=== PATIENT | female | born 1945 | race Caucasian/White ===

== ENCOUNTER 2017-05-21 20:04 | Inpatient (IN) ==
--- NOTE | 2017-05-21 20:19 | Emergency Department Note ---
Disposition Clinical Impression: MANDO (acute kidney injury), Dehydration, Nausea vomiting and diarrhea Leukocytosis Qualifiers: Leukocytosis type: unspecified Qualified Code(s): D72.829 - Elevated white blood cell count, unspecified Disposition: Admitted As Inpatient Condition: Good Time of Disposition: 23:13 Nausea/Vomiting/Diarrhea HPI - General Chief complaint: ED Abdominal Pain Stated complaint: N/V/D x 3days Time Seen by Provider: 05/21/17 20:16 Source: patient Mode of arrival: ambulatory Limitations: no limitations Nursing Notes Reviewed: Yes Vital Signs Reviewed: Yes - History of Present Illness HPI Narrative: Patient is a 71 yo female with PMHx of HTN. She presents today due to N/V/D for 3 days. She states that she also had RUQ pain yesterday that radiated to right LQ and right back. She states that this was pain, it lasted for a few hours. She was concerned that it could be gallbladder related. She went to her PCP and had a right upper quadrant ultrasound ordered outpatient for today to assess her gallbladder. However, she states that she was too sick to go this morning as she was still having dry heaving and diarrhea. Denies any chest pain , shortness of breath, any dysuria, hematuria, blood in the stool. She does still have her gallbladder. She has subjective chills but has not taken her temperature. She is also prescribed Zofran 8 mg to take as needed by her md care physician. She has taken to these tablets at home and states that it is not helping with her nausea. She feels as though she is not able to keep any liquids down. She states that she feels dehydrated. - Related Data Allergies Allergy/AdvReac Type Severity Reaction Status Date / Time No Known Allergies Allergy Verified 05/21/17 22:17 All systems ED: reviewed and negative except as stated. Constitutional: Reports: chills (Subjective) Cardiovascular: Denies: chest pain, palpitations Respiratory: Denies: cough, dyspnea Gastrointestinal: Reports: abdominal pain, nausea, vomiting, diarrhea. Denies: constipation, hematemesis, melena, hematochezia Genitourinary: Denies: urgency, dysuria, frequency Musculoskeletal: Reports: back pain Neurological: Denies: weakness, numbness, paresthesias Endocrine: Denies: fatigue Past Medical History - Past Medical History Attestation: Yes The following information was validated with the patient. Source: patient Medical history: Reports: hypertension Psychiatric history: Reports: anxiety, depression - Social History Smoking Status: Former smoker Smokeless Tobacco Status: No Alcohol use: Reports: none Physical Exam - General Limitations: no limitations General appearance: alert - Head Head exam: atraumatic, normocephalic, normal inspection - Eye Eye exam: Present: normal appearance, PERRL, EOMI - ENT ENT exam: normal oropharynx, mucous membranes dry - Neck Neck exam: Present: normal inspection, full ROM, trachea midline - Chest Chest inspection: Present: normal inspection, symmetric chest wall rise - Respiratory Respiratory exam: Present: normal lung sounds bilaterally - Cardiovascular Cardiovascular exam: Present: normal rhythm, tachycardia, normal heart sounds - Abdominal Exam Abdominal exam: Present: soft, Non-Tender. Absent: tenderness, distention, guarding, rebound, rigidity - Extremities Exam Extremities exam: Present: normal inspection, full ROM. Absent: tenderness, pedal edema - Neurological Exam Neurological exam: Present: alert, oriented X3, CN II-XII intact. Absent: motor sensory deficit - Psychiatric Psychiatric exam: Present: normal affect, normal mood - Skin Skin exam: Present: warm, dry, intact, normal color Course Course Narrative: Patient was tachycardic. Otherwise, the rest of the vitals within normal limits. Patient appears generally unwell, has dry mucous membranes. Otherwise , cardiac exam shows sinus tachycardia, lungs clear to auscultation bilaterally , no overt tenderness on abdomen exam, abdomen is soft, no rigidity or rebound. Bedside ultrasound was performed and gallbladder wall thickness was within normal limits, no air cholecystic fluid, no large stones visible. There may have been a minimal amount of sludge. Patient was ordered Phenergan for nausea since Zofran was not working. Also ordered 1 L normal saline fluids. We will draw a CBC, BMP, LFTs, urine. We will also obtain CT of the abdomen and pelvis. Due to elevated creatinine, low GFR, we will have to do noncontrast CT scan. 21:43 Elevated WBC of 23.4. Cr is 1.9, elevated above baseline. Lipase and LFTs WNL. Lactic 2.5. Trop negative. UA negative. Currently waiting on CT abd and pelvis. 23:10 CT abdomen and pelvis shows colitis of the ascending colon. We will give the patient Cipro and Flagyl. Is also hydronephrosis on the right, this has been a previous issue in the past. Patient states that she was just recently seen at [facility] urology for procedure on the right ureter. She cannot remember what the procedure was. She is aware of this condition and appears to be chronic, has been there is early as [address] Will admit the patient for colitis, a cat, leukocytosis, intractable nausea and vomiting.. Chest X-Ray 05/21/17 20:37 IMPRESSION: Minimal left basilar atelectasis or scar. Sequela of granulomatous disease. D/ / Aryan Thomas MD / Aryan Thomas MD Interpreting Provider: Aryan Thomas MD Abdomen/Pelvis CT 05/21/17 21:06 IMPRESSION: Severe right-sided hydronephrosis, of uncertain etiology. This could be related to an acquired UPJ obstruction due to stricture. Possible concurrent colitis of the ascending colon. Hepatic steatosis. D/ / Thomas Meyer MD / Thomas Meyer MD Interpreting Provider: Thomas Meyer MD Vital Signs Temperature 98 F 05/21/17 20:06 Pulse Rate 114 05/21/17 20:06 Respiratory Rate 20 05/21/17 20:06 Blood Pressure 145/82 05/21/17 20:06 O2 Sat by Pulse Oximetry 94 05/21/17 20:06 Temperature 98 F 05/21/17 20:06 Pulse Rate 90 05/21/17 22:55 Respiratory Rate 16 05/21/17 22:55 Blood Pressure 148/81 05/21/17 22:55 O2 Sat by Pulse Oximetry 95 05/21/17 22:55 Oxygen Delivery Oxygen Delivery Nasal Cannula Nausea/Vomiting/Diarrhea - MDM Narrative Medical decision making narrative: 21:43 Elevated WBC of 23.4. Cr is 1.9, elevated above baseline. Lipase and LFTs WNL. Lactic 2.5. Trop negative. UA negative. Currently waiting on CT abd and pelvis. 23:10 CT abdomen and pelvis shows colitis of the ascending colon. We will give the patient Cipro and Flagyl. Is also hydronephrosis on the right, this has been a previous issue in the past. Patient states that she was just recently seen at [facility] urology for procedure on the right ureter. She cannot remember what the procedure was. She is aware of this condition and appears to be chronic, has been there is early as [address] Will admit the patient for colitis, a cat, leukocytosis, intractable nausea and vomiting.. - Medical Records Medical records reviewed: Yes I reviewed the patient's medical records. - Lab Data Lab results reviewed: Yes I reviewed the patient's lab results. Result diagrams: 05/21/17 19:37 05/21/17 19:37 Lab Results 05/21/17 05/21/17 05/21/17 Range/Units 19:37 19:37 19:37 WBC 23.4 H (4.3-11.1) K/mcL RBC 5.35 H (3.82-4.97) M/mcL Hgb 14.8 (11.5-15.4) g/dL Hct 43.9 (35.3-44.9) % MCV 82.1 L (83.0-100.0) fL MCH 27.7 L (28.0-33.3) pg MCHC 33.7 (31.6-35.5) g/dL RDW 12.8 (11.5-14.5) % Plt Count 187 (140-400) K/mcL MPV 9.5 (9.4-12.4) fL Seg Neutrophils % 82.0 % Band Neutrophils % 12.0 H (0-4) % Lymphocytes % 6.0 % Neutrophils # 22.0 H (1.6-8.9) K/mcL Lymphocytes # 1.4 (0.6-4.6) K/mcL Reactive Lymphocytes Present A (Not Present) Platelet Estimate Normal (Normal) Sodium 134 L (136-145) mEq/L Potassium 3.4 L (3.5-4.5) mEq/L Chloride 95 L (98-109) mEq/L Carbon Dioxide 23 (19-29) mEq/L BUN 28 H (7-20) mg/dL Creatinine 1.94 H (0.57-1.11) mg/dL Est GFR ( Amer) 31 L (> 60) Est GFR (Non-Af Amer) 26 L (> 60) BUN/Creatinine Ratio 14 (6-26) Glucose 166 H (70-99) mg/dL Calculated Osmolality 287 (280-300) Lactic Acid 2.5 H (0.5-2.2) mmol/L Calcium 9.6 (8.6-10.8) mg/dL Total Bilirubin 0.9 (0.2-1.2) mg/dL Direct Bilirubin 0.4 (0.0-0.5) mg/dL Indirect Bilirubin 0.5 (0.0-1.2) mg/dL AST 18 (5-34) Units/L ALT 15 (0-55) Units/L Alkaline Phosphatase 52 (38-126) Units/L Troponin I (0-0.03) ng/mL Serum Total Protein 8.2 (6.0-8.3) g/dL Albumin 3.8 (3.5-5.0) g/dL Globulin 4.4 H (2.4-3.5) g/dL Albumin/Globulin Ratio 0.9 L (1.1-2.2) Amylase 80 (25-125) Units/L Lipase 47 (8-78) Units/L Urine Color (Yellow) Urine Clarity (Clear) Urine pH (5.0-8.0) pH Units Ur Specific [place] (1.010-1.025) Urine Protein (Neg-Trace) mg/dL Urine Glucose (UA) (Normal) mg/dL Urine Ketones (Negative) mg/dL Urine Blood (Negative) Urine Nitrite (Negative) Urine Bilirubin (Negative) Urine Urobilinogen (Normal) mg/dL Ur Leukocyte Esterase (Negative) Urine Microscopic RBC (0-3) per hpf Urine Microscopic WBC (0-3) per hpf Ur Squamous Epith Cells (None-Few) per lpf Urine Bacteria (None-Few) per hpf Hyaline Casts (None-Few) per lpf Ur Culture Indicated? (NO) 05/21/17 05/21/17 Range/Units 19:37 20:49 WBC (4.3-11.1) K/mcL RBC (3.82-4.97) M/mcL Hgb (11.5-15.4) g/dL Hct (35.3-44.9) % MCV (83.0-100.0) fL MCH (28.0-33.3) pg MCHC (31.6-35.5) g/dL RDW (11.5-14.5) % Plt Count (140-400) K/mcL MPV (9.4-12.4) fL Seg Neutrophils % % Band Neutrophils % (0-4) % Lymphocytes % % Neutrophils # (1.6-8.9) K/mcL Lymphocytes # (0.6-4.6) K/mcL Reactive Lymphocytes (Not Present) Platelet Estimate (Normal) Sodium (136-145) mEq/L Potassium (3.5-4.5) mEq/L Chloride (98-109) mEq/L Carbon Dioxide (19-29) mEq/L BUN (7-20) mg/dL Creatinine (0.57-1.11) mg/dL Est GFR ( Amer) (> 60) Est GFR (Non-Af Amer) (> 60) BUN/Creatinine Ratio (6-26) Glucose (70-99) mg/dL Calculated Osmolality (280-300) Lactic Acid (0.5-2.2) mmol/L Calcium (8.6-10.8) mg/dL Total Bilirubin (0.2-1.2) mg/dL Direct Bilirubin (0.0-0.5) mg/dL Indirect Bilirubin (0.0-1.2) mg/dL AST (5-34) Units/L ALT (0-55) Units/L Alkaline Phosphatase (38-126) Units/L Troponin I 0.03 (0-0.03) ng/mL Serum Total Protein (6.0-8.3) g/dL Albumin (3.5-5.0) g/dL Globulin (2.4-3.5) g/dL Albumin/Globulin Ratio (1.1-2.2) Amylase (25-125) Units/L Lipase (8-78) Units/L Urine Color Yellow (Yellow) Urine Clarity Clear (Clear) Urine pH 6.0 (5.0-8.0) pH Units Ur Specific [place] 1.027 H (1.010-1.025) Urine Protein 100 H (Neg-Trace) mg/dL Urine Glucose (UA) Normal (Normal) mg/dL Urine Ketones Negative (Negative) mg/dL Urine Blood Trace H (Negative) Urine Nitrite Negative (Negative) Urine Bilirubin Small H (Negative) Urine Urobilinogen Normal (Normal) mg/dL Ur Leukocyte Esterase Trace H (Negative) Urine Microscopic RBC 5-15 H (0-3) per hpf Urine Microscopic WBC 5-15 H (0-3) per hpf Ur Squamous Epith Cells Many H (None-Few) per lpf Urine Bacteria None Seen (None-Few) per hpf Hyaline Casts Few (None-Few) per lpf Ur Culture Indicated? NO (NO) - Radiology Data Radiology results reviewed: Yes I reviewed the patient's radiology results. Chest X-Ray 05/21/17 20:37 IMPRESSION: Minimal left basilar atelectasis or scar. Sequela of granulomatous disease. D/ / Aryan Thomas MD / Aryan Thomas MD Interpreting Provider: Aryan Thomas MD Abdomen/Pelvis CT 05/21/17 21:06 IMPRESSION: Severe right-sided hydronephrosis, of uncertain etiology. This could be related to an acquired UPJ obstruction due to stricture. Possible concurrent colitis of the ascending colon. Hepatic steatosis. D/ / Thomas Meyer MD / Thomas Meyer MD Interpreting Provider: Thomas Meyer MD S.B.AAndreRAndre - S.BAndreAMargarita Situation: Demographics, MOA Background: Presenting Complaint, Relevant PMH, Meds, & Allergies Assessment: Vital Signs, Course and respsone to treatment, Exam Concerns, Patient/Family Expectation, Pertinant Lab Results, Outstanding Labs Recommendation: Barrier(s) to disposition, Recommendation based on pending studies, treatments, or consults S.B.A.RAndre Report Given to: Dr. Grant SAndreBPeyton Repor Time: 23:13 Attestation Statement - Attestation Attestation: I examined this patient and my medical decision-making was reviewed with the Resident Physician. I agree with the documented findings, disposition and treatment plan as described except to the extent set forth below. Patient to the ED with vomiting and diarrhea for 3-4 days. Saw the PCP who ordered an outpatient ultrasound that she was not well enough to go. On examination she has pain in the right side of her abdomen. Plan. Patient received fluids and meds. Did a bedside ultrasound which did not show any obvious stones or pericholecystic fluid. We elected to CT the patient. She has a right-sided colitis. She also has an incidental finding of a very large hydronephrosis from some type of ureteral obstruction. This is chronic but worsening. Patient admitted to [facility] with sepsis. Patient omitted the hospitalist. 35 minutes of critical care exclusive of separately billable procedures.
[2017-05-21] MEDS ORDERED: *HR* Promethazine 25 MG/ML VIAL IVP ONE (20:36)
[2017-05-21] MEDS ORDERED: 0.9 % Sodium Chloride 1,000 ML IVC ONE ×2 (20:36→22:14)
[2017-05-21 20:46] LABS: Hematocrit 43.9 % (35.3-44.9); Hemoglobin 14.8 g/dL (11.5-15.4); Mean Corpuscular HGB Conc 33.7 g/dL (31.6-35.5); Mean Corpuscular Hemoglobin 27.7 pg (28.0-33.3); Mean Corpuscular Volume 82.1 fL (83.0-100.0); Mean Platelet Volume 9.5 fL (9.4-12.4); Platelet Count 187 K/mcL (140-400); Red Blood Count 5.35 M/mcL (3.82-4.97); Red Cell Distribution Width 12.8 % (11.5-14.5)
[2017-05-21 20:57] LABS: Bilirubin,Urine Small (Negative); Blood,Urine Trace (Negative); Clarity,Urine Clear (Clear); Color,Urine Yellow (Yellow); Glucose,Urine (UA) Normal (Normal); Ketones,Urine Negative (Negative); Leukocyte Esterase,Urine Trace (Negative); Nitrite,Urine Negative (Negative); Protein,Urine 100 mg/dL (Neg-Trace); Specific Gravity,Urine 1.027 (1.010-1.025); Urobilinogen,Urine Normal (Normal)
[2017-05-21 20:58] LABS: Bacteria,Urine None Seen per hpf (None-Few); Hyaline Casts,Urine Few per lpf (None-Few); Squamous Epithelial Cell,Urine Many per lpf (None-Few)
[2017-05-21 21:00] LABS: Albumin 3.8 g/dL (3.5-5.0); Albumin/Globulin Ratio 0.9 (1.1-2.2); Bilirubin,Direct 0.4 mg/dL (0.0-0.5); Bilirubin,Indirect 0.5 mg/dL (0.0-1.2); Bilirubin,Total 0.9 mg/dL (0.2-1.2); Calcium 9.6 mg/dL (8.6-10.8); Globulin 4.4 g/dL (2.4-3.5); Potassium 3.4 mEq/L (3.5-4.5); Total Protein 8.2 g/dL (6.0-8.3)
[2017-05-21 21:23] LABS: Lymphocytes # 1.4 K/mcL (0.6-4.6)
[2017-05-21 21:25] LABS: Platelet Estimate Normal (Normal); Reactive Lymphocytes Present (Not Present)
[2017-05-21] MEDS ORDERED: MetroNIDAZOLE 500 MG/100 ML 500 MG/100 ML BAG IVPB ONE (22:25)
[2017-05-21] MEDS ORDERED: Ondansetron 4 MG/2 ML VIAL IVP PRN (23:16)
[2017-05-21] MEDS ORDERED: *HR* HYDROcodone/Acet 5/325 mg TABLET PO PRN (23:16)
[2017-05-21] MEDS ORDERED: Acetaminophen 325 MG TABLET PO PRN (23:16)
[2017-05-21] MEDS ORDERED: *HR* Morphine 2 MG/ML SYRINGE IVP PRN (23:16)
[2017-05-21] MEDS ORDERED: Naloxone 0.4 MG/ML INJ IVP PRN (23:16)
[2017-05-21] MEDS ORDERED: *HR* Promethazine 25 MG/ML VIAL IVP PRN (23:16)
--- NOTE | 2017-05-21 23:23 | Internal Med History&Physical ---
Date of Encounter: 05/21/17 Time of Encounter: 22:45 Assessment and Plan (1) Sepsis Current visit: Yes Status: Acute Will admit the pt into Med Surg Pt does meet SIRS criteria with Elevated WBC @ 26, Elevated Lactic acid, source of inf as Colitis Will trend on LA and WBC will continue her on IV hydration Cont empirical abx Cipro and Flagyl Qualifiers: Qualified Code(s): A41.9 - Sepsis, unspecified organism (2) Colitis Current visit: Yes Status: Acute concerned for C. Diff inf too with recent Abx usage will check for Stool C. Diff cont empirical abx (3) Hydronephrosis, right Current visit: Yes Status: Acute Due to ureteral stricture Pt denied any oliguria Will consult Urology in AM pt did mention she had some sling placed in before at [facility] may need nehprostomy or stent placement (4) Ureteral stricture, right Current visit: Yes Status: Acute (5) MANDO (acute kidney injury) Current visit: Yes Status: Acute Due to Sepsis, dehydration + Obstructive uropathy cont IV hydration trend on Cr (6) Dehydration Current visit: Yes Status: Acute (7) Nausea vomiting and diarrhea Current visit: Yes Status: Acute on supportive care Internal Medicine - H&P: HPI Chief complaint: N/V/ Diarrhea Admitted From: Emergency Dept Plans for Post Hospital Care: Home History of present illness: Ms. Osman is a 71 year old female with PMHx of HTN, chronic Rt ureter stricture follows at [facility] Urology dept, pt presented to ER with worsening intractable nausea, vomiting and diarrhea. She did c/o Rt flank pain started 3-4 days ago, which is non radiating, sharp like pain. She was also diagnosed with Sinusitis recently and on PO abx Omnicef from last 1 week. Here in the ER her CT of abd showed ascending colitis and Severe hydronephrosis with Rt Ureter stricture. Past Med Surg Social Fam HX - Past Medical History Medical history: hypertension Psychiatric history: anxiety, depression - Social History Smoking Status: Former smoker Smokeless Tobacco Status: No Alcohol use: none - Additional Family History Additional family history: Family hsitory reviewed and non contribuitory to current problem. Internal Medicine - H&P: Meds 3 Allergy/AdvReac Type Severity Reaction Status Date / Time No Known Allergies Allergy Verified 05/21/17 22:17 All Systems PM: A 10-system review of systems was performed and is negative for pertinent findings except as documented above in the HPI. Review of systems: All the systems are reviewed everything is benign except the systems and symptoms I mentioned in the history of present illness - Constitutional Vitals: Temp Pulse Resp BP Pulse Ox 98 F 90 16 148/81 95 05/21/17 20:06 05/21/17 22:55 05/21/17 22:55 05/21/17 22:55 05/21/17 22:55 General appearance: Present: A&O X 3, no acute distress, answers questions appropriately - Head Head exam: Present: atraumatic, normal inspection - Neck Neck exam general surgery: Present: supple - Respiratory Respiratory exam: Present: decreased breath sounds. Absent: rales, respiratory distress, rhonchi, wheezes - Cardiovascular Cardiovascular exam: Present: RRR, +S1, +S2. Absent: tachycardia - GI/Abdominal GI/Abdominal exam: Present: normal bowel sounds, soft. Absent: distended, rebound, rigid - Extremities Exam Extremities exam: Absent: calf tenderness, pedal edema, tenderness - Back Exam Back exam: Present: CVA tenderness (R). Absent: CVA tenderness (L) - Neurological Exam Neurological exam: Present: alert, oriented X3, no focal deficits - Psychiatric Psychiatric exam: Present: depressed - Skin Skin exam: Absent: rash Internal Med - H&P Results - Labs CBC & Chem 7: 05/21/17 19:37 05/21/17 19:37
[2017-05-21] MEDS ORDERED: 0.9 % Sodium Chloride 1,000 ML IVC SCH (23:30)
[2017-05-22] MEDS: MetroNIDAZOLE 500 MG/100 ML 500 MG/100 ML BAG IVPB SCH ×3 (00:41→15:34)
[2017-05-22 04:55] LABS: Basophils % 0.2 %; Hematocrit 39.7 % (35.3-44.9); Immature Granulocytes % 0.4 % (0-4); Lymphocytes # 0.8 K/mcL (0.6-4.6); Mean Corpuscular HGB Conc 33.2 g/dL (31.6-35.5); Mean Corpuscular Hemoglobin 27.8 pg (28.0-33.3); Mean Corpuscular Volume 83.6 fL (83.0-100.0); Mean Platelet Volume 9.3 fL (9.4-12.4); Monocytes # 0.5 K/mcL (0.0-1.3); Monocytes % 3.4 %; Neutrophils # 13.5 K/mcL (1.6-8.9); Platelet Count 133 K/mcL (140-400); Red Blood Count 4.75 M/mcL (3.82-4.97); Red Cell Distribution Width 12.8 % (11.5-14.5)
[2017-05-22 05:11] LABS: Calcium 8.8 mg/dL (8.6-10.8); Potassium 3.4 mEq/L (3.5-4.5)
[2017-05-22 05:12] LABS: Hemoglobin 13.2 g/dL (11.5-15.4)
[2017-05-22] MEDS ORDERED: *HR* Heparin 5,000 UNIT/ML VIAL SQ SCH (06:00)
--- NOTE | 2017-05-22 07:00 | Urology - Consult Note ---
Date of Encounter: 05/22/17 Time of Encounter: 06:57 - Assessment and Plan (1) MANDO (acute kidney injury) Current Visit: Yes Status: Acute Assessment and plan: Expect this to be due secondary to obstruction as well as some dehydration. Expect to improve after stenting today. (2) Hydronephrosis, right Current Visit: Yes Status: Acute Assessment and plan: Patient has worsening right-sided hydronephrosis consistent with a right UPJ obstruction. We will plan on taking the patient to the operating room today for cystoscopy and right ureteral stent placement (3) Ureteral stricture, right Current Visit: Yes Status: Acute Assessment and plan: Likely right UPJ obstruction plan on stenting today. Urology CN:HPI Consult date: 05/22/17 Reason for consult Urology: Hydronephrosis (right) Requesting physician: Juliette Grant History of present illness: Lani is a 71-year-old female with a history of off-and-on right-sided flank discomfort for the past few days. Patient also with some nausea and vomiting. Patient also with diarrhea. Patient came to the emergency department last night secondary to these above complaints. Patient was found to have a elevated leukocytosis as well as elevated serum creatinine. CT scan was done which revealed right-sided moderate to severe hydronephrosis which is worse from prior. Patient had undergone a brief workup by Dr. King regarding right hydronephrosis. This was done in 2013. Patient recently had coaptite periurethral injection done by Dr. Ruiz at [facility] urology. Patient states this did not help her significantly. Patient without fevers at this time. Past Med Surg Social Fam HX - Past Medical History Medical history: hypertension Psychiatric history: anxiety, depression - Social History Smoking Status: Former smoker Smokeless Tobacco Status: No Alcohol use: none Medications and Allergies Potassium Chloride [Klor-Con 10] 10 meq PO DAILY 05/22/17 [History] Valsartan [Diovan] 80 mg PO DAILY 05/22/17 [History] hydroCHLOROthiazide [Hydrochlorothiazide] 25 mg PO DAILY 05/22/17 [History] 3 Allergy/AdvReac Type Severity Reaction Status Date / Time No Known Allergies Allergy Verified 05/21/17 22:17 Review of Systems - Constitutional no chills, no fever(s) - EENT Nose, mouth and throat: no dizziness - Cardiovascular no chest pain - Respiratory no cough - Gastrointestinal abdominal pain - Musculoskeletal back pain - Integumentary no erythema - Neurological no confusion Exam Initial Vital Signs Temp Pulse Resp BP Pulse Ox 98 F 114 20 145/82 94 05/21/17 20:06 05/21/17 20:06 05/21/17 20:06 05/21/17 20:06 05/21/17 20:06 - General physical appearance Present: well developed - Eyes Present: PERRL - Respiratory Present: normal respiratory effort - Cardiovascular Cardiovascular exam IM: RRR - Abdomen Abdomen: Present: soft - Integumentary Present: no rash - Neurologic Present: normal coordination Urology Results - Labs 05/22/17 04:13 05/22/17 04:13 Abnormal lab results WBC 14.9 K/mcL (4.3-11.1) H 05/22/17 04:13 MCH 27.8 pg (28.0-33.3) L 05/22/17 04:13 Plt Count 133 K/mcL (140-400) L 05/22/17 04:13 MPV 9.3 fL (9.4-12.4) L 05/22/17 04:13 Band Neutrophils % 12.0 % (0-4) H 05/21/17 19:37 Neutrophils # 13.5 K/mcL (1.6-8.9) H 05/22/17 04:13 Reactive Lymphocytes Present (Not Present) A 05/21/17 19:37 Potassium 3.4 mEq/L (3.5-4.5) L 05/22/17 04:13 BUN 24 mg/dL (7-20) H 05/22/17 04:13 Creatinine 1.70 mg/dL (0.57-1.11) H 05/22/17 04:13 Est GFR ( Amer) 36 (> 60) L 05/22/17 04:13 Est GFR (Non-Af Amer) 30 (> 60) L 05/22/17 04:13 Glucose 130 mg/dL (70-99) H 05/22/17 04:13 Lactic Acid 2.5 mmol/L (0.5-2.2) H 05/21/17 19:37 Globulin 4.4 g/dL (2.4-3.5) H 05/21/17 19:37 Albumin/Globulin Ratio 0.9 (1.1-2.2) L 05/21/17 19:37 Ur Specific [place] 1.027 (1.010-1.025) H 05/21/17 20:49 Urine Protein 100 mg/dL (Neg-Trace) H 05/21/17 20:49 Urine Blood Trace (Negative) H 05/21/17 20:49 Urine Bilirubin Small (Negative) H 05/21/17 20:49 Ur Leukocyte Esterase Trace (Negative) H 05/21/17 20:49 Urine Microscopic RBC 5-15 per hpf (0-3) H 05/21/17 20:49 Urine Microscopic WBC 5-15 per hpf (0-3) H 05/21/17 20:49 Ur Squamous Epith Cells Many per lpf (None-Few) H 05/21/17 20:49 Diabetes panel 05/22/17 Range/Units 04:13 Sodium 136 (136-145) mEq/L Potassium 3.4 L (3.5-4.5) mEq/L Chloride 102 (98-109) mEq/L Carbon Dioxide 25 (19-29) mEq/L BUN 24 H (7-20) mg/dL Creatinine 1.70 H (0.57-1.11) mg/dL Glucose 130 H (70-99) mg/dL Calcium 8.8 (8.6-10.8) mg/dL Calcium panel 05/22/17 Range/Units 04:13 Calcium 8.8 (8.6-10.8) mg/dL Pituitary panel 05/22/17 Range/Units 04:13 Sodium 136 (136-145) mEq/L Potassium 3.4 L (3.5-4.5) mEq/L Chloride 102 (98-109) mEq/L Carbon Dioxide 25 (19-29) mEq/L BUN 24 H (7-20) mg/dL Creatinine 1.70 H (0.57-1.11) mg/dL Glucose 130 H (70-99) mg/dL Calcium 8.8 (8.6-10.8) mg/dL Adrenal panel 05/22/17 Range/Units 04:13 Sodium 136 (136-145) mEq/L Potassium 3.4 L (3.5-4.5) mEq/L Chloride 102 (98-109) mEq/L Carbon Dioxide 25 (19-29) mEq/L BUN 24 H (7-20) mg/dL Creatinine 1.70 H (0.57-1.11) mg/dL Glucose 130 H (70-99) mg/dL Calcium 8.8 (8.6-10.8) mg/dL All other labs normal. - Imaging CT scan - abdomen: image reviewed CT scan - pelvis: image reviewed Consult Discharge Plan - Plan Referrals: Bartolo Ma DO [Primary Care Provider] -
--- NOTE | 2017-05-22 07:12 | Anesthesia Evaluation PreOp ---
Date of Encounter: 05/22/17 Time of Encounter: 08:44 - Past History Planned Operation: Right Ureteral Stent Placement Cardiac History: HTN Pulmonary History: Former smoker (quit 2 years ago, smoked for 50 years), Snore MOBILE APPLICATION ARCHITECT History: Denies Any Significant HX Other Medical History: Renal (kidney stones), GERD (occasional), Other (anxiety/ depression) Anesthesia History: No Prior Anesthetic Complications, Past Anesthesia Alcohol Use: none Drug use: none Medications and Allergies Potassium Chloride [Klor-Con 10] 10 meq PO DAILY 05/22/17 [History] Valsartan [Diovan] 80 mg PO DAILY 05/22/17 [History] hydroCHLOROthiazide [Hydrochlorothiazide] 25 mg PO DAILY 05/22/17 [History] 3 Allergy/AdvReac Type Severity Reaction Status Date / Time No Known Allergies Allergy Verified 05/21/17 22:17 - Meds/Allergy Pre-op Review Medications Reviewed: Yes Allergies Reviewed: Yes Beta Blockers on Current Med List: No Anesthesia Results - Labs 05/22/17 04:13 05/22/17 04:13 - Imaging EKG: report reviewed (05/21/2017 SR, low QRS voltage in precordial leads, possible anterior/inferior infarct) Anesthesia Exam Vital Signs/O2 Sat, Most Current Temp Pulse Resp BP Pulse Ox 98.7 F 99 12 140/74 94 05/22/17 07:31 05/22/17 07:31 05/22/17 07:31 05/22/17 07:31 05/22/17 07:31 Height: 5'2''/1.57 m Weight: 178 lbs/80.8 kg NPO (# of Hours): 8 Pain Scale: 0 Pain Scale Used: Numeric (1 - 10) - HEENT Pupil (Motor): EOMI Mallampati: II Teeth: Normal, Missing Oral Opening: Greater than 3 - MOBILE APPLICATION ARCHITECT LOC: Oriented MOBILE APPLICATION ARCHITECT Motor: Normal RUE, Normal LUE, Normal LLE, Normal Face, Deficit RLE MOBILE APPLICATION ARCHITECT Sensory: Normal: RUE, LUE, RLE, LLE, Face - Cardiac Rhythm: Regular Murmur: None - Pulmonary Breath Sounds: bilateral Clear Respiratory Effort: Symmetrical Anesthesia Assess/Plan ASA Score: 2 Modified Sebastien Scale for Level of Consciousness: Cooperative, oriented, and tranquil Anesthetic Plan: General Monitoring Plan: Standard Monitors Recovery Plan: PACU
[2017-05-22 08:09] LABS: Magnesium 1.5 mg/dL (1.6-2.6)
[2017-05-22] MEDS ORDERED: *HR* Propofol 200 MG/20 ML VIAL IVP ONE (08:28)
[2017-05-22] MEDS ORDERED: Lidocaine -MPF 2% 2 ML VIAL ONE (08:28)
[2017-05-22] MEDS ORDERED: *HR* Midazolam HCl 2 MG/2 ML VIAL ONE (08:28)
[2017-05-22] MEDS ORDERED: *HR* FentaNYL (PF) 100 MCG/2 ML VIAL ONE (08:28)
[2017-05-22] MEDS ORDERED: *HR* Morphine 2 MG/ML SYRINGE IVP PRN (08:51)
[2017-05-22] MEDS ORDERED: Dexamethasone 4 MG/ML VIAL ONE (09:07)
[2017-05-22] MEDS ORDERED: Ondansetron 4 MG/2 ML VIAL ONE (09:07)
[2017-05-22] MEDS ORDERED: Magnesium Sulfate 2 GM in D5% in Water 100 ML IVPB ONE (09:19)
--- NOTE | 2017-05-22 09:31 | Operative Note ---
Date of procedure: 05/22/17 Pre-op diagnosis: right hydronephrosis Post-op diagnosis: same Procedure: Cystoscopy, right retrograde pyelogram, right 4.8 x 26 cm ureteral stent placement Anesthesia: JSA Surgeon: Mj Pop Condition: stable Disposition: PACU Procedure in Detail: Patient was prepped and draped in normal sterile fashion. Timeout procedure performed. I then inserted the cystoscope into the patient's bladder. The right ureteral orifice was cannulated using a open ended ureteral catheter. Retrograde pyelogram was then performed which revealed narrow right UPJ with significant hydronephrosis proximal to this. Quite difficult to completely elicit the UPJ narrowing secondary to severe hydronephrosis on the other side. I then placed a sensor wire into the right kidney. I then attempted to place a 6 x 26 m stent but this would not negotiate past the distal ureter. I then was able to place a Glidewire into the right kidney followed by a 4.8 x 26 cm stent. Good curl seen in the right kidney and in the bladder. The bladder was drained and procedure was ended.
--- NOTE | 2017-05-22 10:00 | Anesthesia Evaluation Post Op ---
Date of Encounter: 05/22/17 Time of Encounter: 10:00 - Vital Signs Vital Signs: Vital Signs/O2 Sat, Most Current Temp Pulse Resp BP Pulse Ox 97.6 F 81 16 123/70 100 05/22/17 09:35 05/22/17 09:55 05/22/17 09:55 05/22/17 09:55 05/22/17 09:55 - Lungs Lungs: Clear Ascult./Percussion - Airway Airway: Non-obstructed - Cardiovascular Regular Rate - Mental Status Mental Status: Alert & Oriented, Answers Appropriately - Pain Pain Scale: 1 Pain Scale used: Numeric (1 - 10) - Nausea Vomiting Nausea Vomiting: Not Present - Hydration Hydration: Ice chips, Has not voided - Discharge PostOp Status: Transfer Patient to floor
[2017-05-22] MEDS ORDERED: *HR* HYDROcodone/Acet 5/325 mg TABLET PO PRN (11:23)
[2017-05-22] MEDS ORDERED: Ondansetron 4 MG/2 ML VIAL IVP PRN (11:23)
[2017-05-22] MEDS ORDERED: Naloxone 0.4 MG/ML INJ IVP PRN (11:23)
[2017-05-22] MEDS ORDERED: *HR* Promethazine 25 MG/ML VIAL IVP PRN (11:23)
[2017-05-22] MEDS ORDERED: 0.9 % Sodium Chloride 1,000 ML IVC SCH (11:23)
--- NOTE | 2017-05-22 12:10 | Internal Med Progress Note ---
Date of Encounter: 05/22/17 Time of Encounter: 11:30 - Assessment and plan (1) C. difficile colitis Current Visit: Yes Status: Acute Assessment and plan: Presented with nausea, vomiting, abdominal pain and noted to have tachycardia, leukocytosis and lactic acidosis. CT abdomen/pelvis showed right hydronephrosis and concurrent descending colon colitis. Patient has history of recent multiple antibiotic use. Stool for C. difficile toxin positive. Started on contact precautions, continue IV Flagyl-Day 1. Supportive care with IV hydration and pain control, when necessary antiemetics. (2) Anxiety Current Visit: Yes Status: Chronic (3) Essential hypertension Current Visit: Yes Status: Chronic (4) Hypokalemia Current Visit: Yes Status: Acute Assessment and plan: Supplement with oral potassium chloride. Continue to monitor. Noted to be on diuretics at home. (5) Hypomagnesemia Current Visit: Yes Status: Acute Assessment and plan: Likely related to diuretic use. Supplement with IV magnesium sulfate and continue to monitor. (6) MANDO (acute kidney injury) Current Visit: Yes Status: Acute Assessment and plan: Likely related to right ureteral stricture and hydronephrosis along with some dehydration related to GI losses/colitis. Continue IV hydration and monitor serum creatinine closely. (7) Hydronephrosis, right Current Visit: Yes Status: Acute (8) Ureteral stricture, right Current Visit: Yes Status: Acute Assessment and plan: Urology consulted, patient underwent cystoscopy and right ureteral stent placement today. Monitor urine output closely. (9) Sepsis Current Visit: Yes Status: Acute Assessment and plan: SIRS criteria Related to both C. difficile infection and right-sided hydronephrosis; now improving; Qualifiers: Sepsis type: sepsis due to unspecified organism Qualified Code(s): A41.9 - Sepsis, unspecified organism - Subjective Interval history: Reports feeling better, improved abdominal pain, nausea and vomiting; just returned from OR after receiving ureteral stent, probably still has effects of anesthesia; has watery diarrhea for the last 4-5 days, no fever/chills, dyspnea ; has ahd 3-4 different courses of antibiotics with various antibiotics in the recent past due to UTI, sinusitis; - Constitutional Vitals: Temp Pulse Resp BP Pulse Ox 98.0 F 68 12 137/79 93 05/22/17 11:00 05/22/17 11:00 05/22/17 11:00 05/22/17 11:00 05/22/17 11:00 General appearance: Present: A&O X 3, answers questions appropriately - Respiratory Respiratory exam: Present: CTAB. Absent: accessory muscle use, rales, rhonchi, wheezes - Cardiovascular Cardiovascular exam: Present: RRR, +S1, +S2. Absent: diastolic murmur, gallop, rubs, systolic murmur - GI/Abdominal GI/Abdominal exam: Present: normal bowel sounds, soft, no peritoneal signs. Absent: distended, tenderness - Extremities Exam Extremities exam: Present: full ROM, warm, radial pulses palpable and symmetrical. Absent: calf tenderness, cyanotic, pedal edema - Neurological Exam Neurological exam: Present: CN II-XII intact, oriented X3, no focal deficits. Absent: pronater drift, facial droop, speech deficit Internal Medicine: Result - Labs CBC & Chem 7: 05/22/17 04:13 05/22/17 04:13 Labs: Short CBC 05/22/17 Range/Units 04:13 WBC 14.9 H (4.3-11.1) K/mcL Hgb 13.2 D (11.5-15.4) g/dL Hct 39.7 (35.3-44.9) % Plt Count 133 L (140-400) K/mcL Neutrophils # 13.5 H (1.6-8.9) K/mcL BMP 05/22/17 04:13 Sodium 136 Potassium 3.4 L Chloride 102 Carbon Dioxide 25 BUN 24 H Creatinine 1.70 H Glucose 130 H Calcium 8.8 - Impressions Impressions Retrograde Pyelogram 05/22/17 00:00 IMPRESSION: Intraprocedural fluoroscopic spot images as above. See separate procedure report for more information. D/ / 05/22/2017 10:02:51 Re Ferro / sharri Interpreting Provider: Re Ferro Consult Discharge Plan - Plan Referrals: Bartolo Ma DO [Primary Care Provider] -
[2017-05-22] MEDS: *HR* Heparin 5,000 UNIT/ML VIAL SQ SCH (18:39)
[2017-05-22] MEDS: Lactobacillus 1 EACH CAP.SPRINK PO SCH (21:57)
[2017-05-23] MEDS: MetroNIDAZOLE 500 MG/100 ML 500 MG/100 ML BAG IVPB SCH ×3 (00:01→16:29)
[2017-05-23] MEDS: *HR* Heparin 5,000 UNIT/ML VIAL SQ SCH ×2 (04:44→16:30)
[2017-05-23 06:24] LABS: Basophils % 0.2 %; Eosinophils % 0.1 %; Hemoglobin 11.7 g/dL (11.5-15.4); Immature Granulocytes % 0.5 % (0-4); Lymphocytes # 1.1 K/mcL (0.6-4.6); Lymphocytes % 11.1 %; Mean Corpuscular HGB Conc 32.5 g/dL (31.6-35.5); Mean Corpuscular Hemoglobin 27.1 pg (28.0-33.3); Mean Corpuscular Volume 83.3 fL (83.0-100.0); Mean Platelet Volume 9.6 fL (9.4-12.4); Monocytes # 0.7 K/mcL (0.0-1.3); Monocytes % 6.8 %; Neutrophils # 7.7 K/mcL (1.6-8.9); Platelet Count 130 K/mcL (140-400); Red Blood Count 4.32 M/mcL (3.82-4.97); Red Cell Distribution Width 12.9 % (11.5-14.5); Segmented Neutrophils % 81.3 %
[2017-05-23 06:30] LABS: Calcium 8.3 mg/dL (8.6-10.8); Potassium 3.1 mEq/L (3.5-4.5)
[2017-05-23] MEDS: Lactobacillus 1 EACH CAP.SPRINK PO SCH ×2 (07:49→21:22)
[2017-05-23] MEDS: hydroCHLOROthiazide 25 MG TABLET PO SCH (07:50)
[2017-05-23] MEDS: Valsartan 80 MG TABLET PO SCH (07:50)
[2017-05-23] MEDS: Acetaminophen 325 MG TABLET PO PRN (07:56)
[2017-05-23] MEDS ORDERED: Potassium Chloride Elixir 20 MEQ/15 ML UDC PO ONE (08:01)
--- NOTE | 2017-05-23 08:20 | Urology Progress Note ---
Date of Encounter: 05/23/17 Time of Encounter: 08:17 - Assessment and Plan (1) MANDO (acute kidney injury) Current Visit: Yes Status: Acute Assessment and plan: serum creatinine improved (2) Hydronephrosis, right Current Visit: Yes Status: Acute Assessment and plan: sp stenting. (3) Ureteral stricture, right Current Visit: Yes Status: Acute Assessment and plan: f/u as outpatient for discussion of next step regarding right UPJ Progress Note Narrative: Patient seen. feeling better, but still with diarrhea. Objective Initial Vital Signs Temp Pulse Resp BP Pulse Ox 98 F 114 20 145/82 94 05/21/17 20:06 05/21/17 20:06 05/21/17 20:06 05/21/17 20:06 05/21/17 20:06 - General physical appearance Present: well developed - Abdomen Present: soft - Labs 05/23/17 06:01 05/23/17 06:01 Diabetes panel 05/23/17 Range/Units 06:01 Sodium 140 (136-145) mEq/L Potassium 3.1 L (3.5-4.5) mEq/L Chloride 107 (98-109) mEq/L Carbon Dioxide 27 (19-29) mEq/L BUN 17 (7-20) mg/dL Creatinine 1.28 H (0.57-1.11) mg/dL Glucose 116 H (70-99) mg/dL Calcium 8.3 L (8.6-10.8) mg/dL Calcium panel 05/23/17 Range/Units 06:01 Calcium 8.3 L (8.6-10.8) mg/dL Pituitary panel 05/23/17 Range/Units 06:01 Sodium 140 (136-145) mEq/L Potassium 3.1 L (3.5-4.5) mEq/L Chloride 107 (98-109) mEq/L Carbon Dioxide 27 (19-29) mEq/L BUN 17 (7-20) mg/dL Creatinine 1.28 H (0.57-1.11) mg/dL Glucose 116 H (70-99) mg/dL Calcium 8.3 L (8.6-10.8) mg/dL Adrenal panel 05/23/17 Range/Units 06:01 Sodium 140 (136-145) mEq/L Potassium 3.1 L (3.5-4.5) mEq/L Chloride 107 (98-109) mEq/L Carbon Dioxide 27 (19-29) mEq/L BUN 17 (7-20) mg/dL Creatinine 1.28 H (0.57-1.11) mg/dL Glucose 116 H (70-99) mg/dL Calcium 8.3 L (8.6-10.8) mg/dL Consult Discharge Plan - Plan Referrals: Bartolo Ma DO [Primary Care Provider] -
--- NOTE | 2017-05-23 09:15 | Internal Med Progress Note ---
Date of Encounter: 05/23/17 Time of Encounter: 09:14 - Assessment and plan (1) Sepsis Current Visit: Yes Status: Acute Assessment and plan: SIRS criteria Related to both C. difficile infection and right-sided hydronephrosis; now improving; Qualifiers: Sepsis type: sepsis due to unspecified organism Qualified Code(s): A41.9 - Sepsis, unspecified organism (2) C. difficile colitis Current Visit: Yes Status: Acute Assessment and plan: Presented with nausea, vomiting, abdominal pain and noted to have tachycardia, leukocytosis and lactic acidosis. CT abdomen/pelvis showed right hydronephrosis and concurrent descending colon colitis. Patient has history of recent multiple antibiotic use. Stool for C. difficile toxin positive. Started on contact precautions, continue IV Flagyl-Day 2. Supportive care with IV hydration and pain control, when necessary antiemetics. Diet as tolerated. Monitor and replete electrolytes closely; (3) Anxiety Current Visit: Yes Status: Chronic (4) Essential hypertension Current Visit: Yes Status: Chronic (5) Hypokalemia Current Visit: Yes Status: Acute Assessment and plan: Due to GI losses; Supplement with oral potassium chloride. Continue to monitor. Noted to be on diuretics at home. (6) Hypomagnesemia Current Visit: Yes Status: Resolved Assessment and plan: improved with supplementation; (7) MANDO (acute kidney injury) Current Visit: Yes Status: Acute Assessment and plan: Likely related to right ureteral stricture and hydronephrosis along with some dehydration related to GI losses/colitis. Improving serum creatinine; Continue IV hydration and monitor serum creatinine closely. (8) Hydronephrosis, right Current Visit: Yes Status: Acute (9) Ureteral stricture, right Current Visit: Yes Status: Acute Assessment and plan: Urology consulted, patient underwent cystoscopy and right ureteral stent placement. Monitor urine output closely. - Subjective Interval history: Continues to have diarrhea; improved abdominal pain, nausea and vomiting; no fever/chills; feels weak, had 2-3 bowel movements since this morning already; - Constitutional Vitals: Temp Pulse Resp BP Pulse Ox 97.7 F 73 14 132/73 94 05/23/17 08:03 05/23/17 08:03 05/23/17 08:03 05/23/17 08:03 05/23/17 08:09 General appearance: Present: A&O X 3, answers questions appropriately - Respiratory Respiratory exam: Present: CTAB. Absent: accessory muscle use, rales, rhonchi, wheezes - Cardiovascular Cardiovascular exam: Present: RRR, +S1, +S2. Absent: diastolic murmur, gallop, rubs, systolic murmur - GI/Abdominal GI/Abdominal exam: Present: normal bowel sounds, soft, no peritoneal signs. Absent: distended, tenderness - Extremities Exam Extremities exam: Present: full ROM, warm, radial pulses palpable and symmetrical. Absent: calf tenderness, cyanotic, pedal edema - Neurological Exam Neurological exam: Present: CN II-XII intact, oriented X3, no focal deficits. Absent: pronater drift, facial droop, speech deficit Internal Medicine: Result - Labs CBC & Chem 7: 05/23/17 06:01 05/23/17 06:01 Labs: Short CBC 05/23/17 Range/Units 06:01 WBC 9.5 (4.3-11.1) K/mcL Hgb 11.7 D (11.5-15.4) g/dL Hct 36.0 (35.3-44.9) % Plt Count 130 L (140-400) K/mcL Neutrophils # 7.7 (1.6-8.9) K/mcL BMP 05/23/17 06:01 Sodium 140 Potassium 3.1 L Chloride 107 Carbon Dioxide 27 BUN 17 Creatinine 1.28 H Glucose 116 H Calcium 8.3 L - Impressions Impressions Retrograde Pyelogram 05/22/17 00:00 IMPRESSION: Intraprocedural fluoroscopic spot images as above. See separate procedure report for more information. D/ / 05/22/2017 10:02:51 Re Ferro / sharri Interpreting Provider: Re Ferro Consult Discharge Plan - Plan Referrals: Bartolo Ma DO [Primary Care Provider] -
[2017-05-24] MEDS: MetroNIDAZOLE 500 MG/100 ML 500 MG/100 ML BAG IVPB SCH ×4 (00:23→23:58)
[2017-05-24] MEDS: Acetaminophen 325 MG TABLET PO PRN (00:23)
[2017-05-24 05:02] LABS: Calcium 8.6 mg/dL (8.6-10.8); Magnesium 1.5 mg/dL (1.6-2.6); Potassium 3.2 mEq/L (3.5-4.5)
[2017-05-24 05:08] LABS: Basophils % 0.4 %; Eosinophils # 0.1 K/mcL (0.0-0.6); Eosinophils % 1.4 %; Hematocrit 37.2 % (35.3-44.9); Immature Granulocytes % 0.5 % (0-4); Lymphocytes # 1.9 K/mcL (0.6-4.6); Lymphocytes % 22.4 %; Mean Corpuscular HGB Conc 32.3 g/dL (31.6-35.5); Mean Corpuscular Hemoglobin 27.3 pg (28.0-33.3); Mean Corpuscular Volume 84.5 fL (83.0-100.0); Mean Platelet Volume 9.9 fL (9.4-12.4); Monocytes # 0.7 K/mcL (0.0-1.3); Monocytes % 8.1 %; Neutrophils # 5.7 K/mcL (1.6-8.9); Platelet Count 139 K/mcL (140-400); Red Cell Distribution Width 13.1 % (11.5-14.5); Segmented Neutrophils % 67.2 %
[2017-05-24] MEDS: *HR* Heparin 5,000 UNIT/ML VIAL SQ SCH ×2 (06:42→17:37)
[2017-05-24] MEDS ORDERED: Magnesium Oxide 400 MG TABLET PO ONE (07:26)
[2017-05-24] MEDS: FLUoxetine 20 MG CAPSULE PO SCH (07:54)
[2017-05-24] MEDS: Valsartan 80 MG TABLET PO SCH (07:55)
[2017-05-24] MEDS: hydroCHLOROthiazide 25 MG TABLET PO SCH (07:55)
[2017-05-24] MEDS: Lactobacillus 1 EACH CAP.SPRINK PO SCH ×2 (07:55→21:44)
--- NOTE | 2017-05-24 09:52 | Electrocardiograph Report ---
[address] [place] [id number] Test Date: 2017-05-21 Pat Name: Lani Osman Department: 104 Room: 3A11 Gender: F [employer] Supervisor: TREY : 1945 Requested By: Alon Parra Order Number: [id number] Reading MD: Wilfredo Burris DO Measurements Intervals [place] Rate: 89 P: 44 MN: 158 QRS: -16 QRSD: 104 T: 11 QT: 358 QTc: 404 Interpretive Statements SINUS RHYTHM LOW QRS VOLTAGE IN PRECORDIAL LEADS POSSIBLE ANTERIOR MYOCARDIAL INFARCTION, OF INDETERMINATE AGE POSSIBLE INFERIOR MYOCARDIAL INFARCTION, PROBABLY OLD Electronically Signed On 05-24-2017 9:50:24 EST by Wilfredo Burris DO
--- NOTE | 2017-05-24 12:47 | Event Note ---
Date of Encounter: 05/24/17 Time of Encounter: 12:46 Patient scheduled for f/u on 06/16/17 at 8 am.
--- NOTE | 2017-05-24 13:02 | Internal Med Progress Note ---
Date of Encounter: 05/24/17 Time of Encounter: 07:20 - Assessment and plan (1) MANDO (acute kidney injury) Current Visit: Yes Status: Acute Assessment and plan: Likely related to right ureteral stricture and hydronephrosis along with some dehydration related to GI losses/colitis. Improving serum creatinine; Continue IV hydration and monitor serum creatinine closely. Check labs in the morning. (2) Hydronephrosis, right Current Visit: Yes Status: Acute Assessment and plan: The patient is status post cystoscopy with right ureteral stent placed she will need to follow-up with urology after discharge. (3) Ureteral stricture, right Current Visit: Yes Status: Acute Assessment and plan: Urology consulted, patient underwent cystoscopy and right ureteral stent placement. Monitor urine output closely. (4) C. difficile colitis Current Visit: Yes Status: Acute Assessment and plan: Presented with nausea, vomiting, abdominal pain and noted to have tachycardia, leukocytosis and lactic acidosis. CT abdomen/pelvis showed right hydronephrosis and concurrent descending colon colitis. Patient has history of recent multiple antibiotic use. Stool for C. difficile toxin positive. Started on contact precautions, continue IV Flagyl-Day 3. Supportive care with IV hydration and pain control, when necessary antiemetics. Diet as tolerated. Monitor and replete electrolytes closely; (5) Essential hypertension Current Visit: Yes Status: Chronic Assessment and plan: Blood pressure is stable on Diovan and hydrochlorothiazide. will continue that. (6) DVT prophylaxis Current Visit: Yes Status: Acute Assessment and plan: Heparin subcutaneous - Subjective Interval history: No acute events. The patient continues to have significant loose bowel movements although she says that they are starting to form. She has been afebrile. Her abdominal discomfort is better. - Constitutional Vitals: Temp Pulse Resp BP Pulse Ox 98.2 F 85 16 113/67 91 05/24/17 10:20 05/24/17 10:20 05/24/17 10:20 05/24/17 10:20 05/24/17 10:20 General appearance: Present: A&O X 3, answers questions appropriately Exam: GEN: NAD CVS: RRR. S1, S2, No m/r/g RESP: CTAB ABD: Soft, NT, ND, +BS EXT: No edema. 2+ DP, No rashes NEURO: Nonfocal Internal Medicine: Result - Labs CBC & Chem 7: 05/24/17 04:09 05/24/17 04:09 Labs: Short CBC 05/24/17 Range/Units 04:09 WBC 8.5 (4.3-11.1) K/mcL Hgb 12.0 (11.5-15.4) g/dL Hct 37.2 (35.3-44.9) % Plt Count 139 L (140-400) K/mcL Neutrophils # 5.7 (1.6-8.9) K/mcL BMP 05/24/17 04:09 Sodium 142 Potassium 3.2 L Chloride 105 Carbon Dioxide 26 BUN 12 Creatinine 1.16 H Glucose 93 Calcium 8.6 Consult Discharge Plan - Plan Referrals: Bartolo Ma DO [Primary Care Provider] -
[2017-05-25] MEDS ORDERED: *HR* Metoprolol 5 MG/5 ML VIAL IVP ONE (01:21)
[2017-05-25 05:01] LABS: Basophils % 0.4 %; Eosinophils # 0.2 K/mcL (0.0-0.6); Eosinophils % 2.6 %; Hematocrit 38.5 % (35.3-44.9); Hemoglobin 12.4 g/dL (11.5-15.4); Immature Granulocytes % 0.7 % (0-4); Lymphocytes # 1.8 K/mcL (0.6-4.6); Mean Corpuscular HGB Conc 32.2 g/dL (31.6-35.5); Mean Corpuscular Hemoglobin 26.8 pg (28.0-33.3); Mean Corpuscular Volume 83.2 fL (83.0-100.0); Mean Platelet Volume 9.4 fL (9.4-12.4); Monocytes # 0.7 K/mcL (0.0-1.3); Monocytes % 9.8 %; Neutrophils # 4.3 K/mcL (1.6-8.9); Platelet Count 166 K/mcL (140-400); Red Blood Count 4.63 M/mcL (3.82-4.97); Segmented Neutrophils % 60.5 %
[2017-05-25 05:25] LABS: BUN/Creatinine Ratio 13 (6-26); Blood Urea Nitrogen 13 mg/dL (8-23); Calcium 8.7 mg/dL (8.6-10.3); Carbon Dioxide 29 mEq/L (23-29); Chloride 104 mEq/L (98-107); Glucose 105 mg/dL (70-105); Osmolality,Calculated 292 (280-300); Potassium 3.2 mEq/L (3.5-5.1); Sodium 141 mEq/L (136-145); eGFR For African Americans > 60 (> 60); eGFR For Non-African Americans 54 (> 60)
[2017-05-25] MEDS: *HR* Heparin 5,000 UNIT/ML VIAL SQ SCH (05:54)
--- NOTE | 2017-05-25 08:16 | Discharge Summary ---
Date of Encounter: 05/25/17 Time of Encounter: 08:00 - Discharge Diagnosis (1) MANDO (acute kidney injury) Priority: Primary Status: Acute (2) Hydronephrosis, right Priority: Primary Status: Acute (3) Ureteral stricture, right Priority: Primary Status: Acute (4) C. difficile colitis Priority: Primary Status: Acute (5) Essential hypertension Priority: Secondary Status: Chronic - Discharge Medications Prescriptions: metroNIDAZOLE [Flagyl] 500 mg PO TID #30 tablet Home Medications: Cefdinir [Omnicef] 300 mg PO BID 05/22/17 [History] FLUoxetine HCl [Prozac] 20 mg PO DAILY 05/22/17 [History] Ibuprofen 800 mg PO TID PRN 05/22/17 [History] Ondansetron HCl 8 mg PO TID PRN 05/22/17 [History] Potassium Chloride [Klor-Con 10] 10 meq PO DAILY 05/22/17 [History] Tramadol HCl [Ultram] 50 mg PO BID PRN 05/22/17 [History] Valsartan [Diovan] 80 mg PO DAILY 05/22/17 [History] hydroCHLOROthiazide [Hydrochlorothiazide] 25 mg PO DAILY 05/22/17 [History] metroNIDAZOLE [Flagyl] 500 mg PO TID #30 tablet 05/25/17 [Rx] Allergies/Adverse Reactions: 3 Allergy/AdvReac Type Severity Reaction Status Date / Time No Known Allergies Allergy Verified 05/22/17 16:06 Date of admission: 05/21/17 23:16 Primary care physician: Bartolo Ma, Consults: 05/22/17 06:25 Consult to Urology [CONS] Routine Consulting Provider: Urology Brenda Reason for Consult: severe right hydroureter/hydronephrosis; Spoke with Dr. Pop Time Notified: 06:26 Call Completed: Yes - Patient Status Disposition: Home, Self-Care Condition: Fair Overall status at discharge: patient is back to baseline - Discharge Instructions Instructions: Clostridium Difficile Infection (DC) Follow Up With: Mj Pop MD [Partnered Physician] - 06/16/17 8:00 am (2 weeks) Additional Instructions: Follow-up appointments: If there is not an appointment listed below, please call your physician and schedule a follow-up appointment. If you have congestive heart failure and your symptoms return, make an appointment with your physician. Medication List: Carry an up to date list of medications you are taking at all time. We have given you an updated medication list including any new medications that you have been prescribed. Please provide that list to your primary provider Symptoms: If your condition changes or you experience any of the following symptoms, notify your physician immediately: Unusual or worsening pain, fever, persistent nausea and vomiting, bleeding, increase in swelling (especially in your legs), sudden weight gain, extreme dizziness, chest pain, increased drainage or redness from a wound or incision. Go to the emergency department if you experience a problem with breathing. Weights: If you have a history of swelling or shortness of breath, weigh yourself daily and notify your physician if you have a weight gain of two or more pounds in one day or 5 or more pounds in a week. If you experience any of the warning signs for stroke: Sudden numbness or weakness of the face, arm or leg; especially on one side of the body, sudden confusion, trouble speaking or understanding, sudden trouble seeing in one or both eyes, sudden trouble walking, dizziness, loss of balance or coordination, sudden sever headache with no cause; Call 911 or go to the emergency room. Stroke is a medical emergency. Some risk factors for stroke: Age, cigarette smoking, diabetes, excessive alcohol consumption, family history , high blood pressure, overweight, physical inactivity, prior stroke, heart attack, diagnosis of carotid artery stenosis or other artery disease. If you smoke, STOP: Smoking or tobacco use significantly increases your risk of heart and lung disease. Your chance of disease greatly increases if you continue to smoke. For more information, call the [place] tobacco quit line for smoking cessation QUIT-NOW ( ) - Diet and Activity Activity: resume usual activities as tolerated Diet: low salt diet Hospital course: Ms. Osman is a 71 year old female PMHx of HTN, chronic Rt ureter stricture follows at [facility] de[facility]. Pt presented to ER with worsening intractable nausea, vomiting and diarrhea. She did c/o Rt flank pain started 3-4 days ago, which is non radiating, sharp like pain. She was also diagnosed with Sinusitis recently and on PO Omnicef from last week. Here in the ER her CT of abd showed ascending colitis and Severe hydronephrosis with Rt Ureter stricture. She met SIRS criteria with elevated white count and elevated lactic acid. She tested positive for C. difficile and was started on IV Flagyl. She will need to finish a 14 day course. She was seen by urology and had a cystoscopy with right ureteral stent ventilator follow-up with urology after discharge. She was discharged on 05/25. - Time Spent with Patient Total time spent providing and/or coordinating discharge services: Greater than 30 minutes - Constitutional Vitals: Temp Pulse Resp BP Pulse Ox 98.1 F 69 15 171/100 91 05/25/17 04:29 05/25/17 04:29 05/25/17 04:29 05/25/17 08:08 05/25/17 04:29 General appearance: Present: A&O X 3, answers questions appropriately Exam: GEN: NAD CVS: RRR. S1, S2, No m/r/g RESP: CTAB ABD: Soft, NT, ND, +BS EXT: No edema. 2+ DP. No rashes NEURO: Nonfocal
[2017-05-25] MEDS: Valsartan 80 MG TABLET PO SCH (08:37)
[2017-05-25] MEDS: FLUoxetine 20 MG CAPSULE PO SCH (08:37)
[2017-05-25] MEDS: Lactobacillus 1 EACH CAP.SPRINK PO SCH (08:37)
[2017-05-25] MEDS: MetroNIDAZOLE 500 MG/100 ML 500 MG/100 ML BAG IVPB SCH (09:00)
[2017-05-25 10:19] VITALS: BP 146/80
== END 2017-05-25 11:30 | disposition home or self-care (01) | DRG 872 ==
LOC: EMEROO 20:04 → 3ANU 20:04
PROVIDERS: ADMIT Family Medicine; ATTEND Internal Medicine